=== PATIENT | male | born 1975 | race Caucasian/White ===

== ENCOUNTER → 2017-05-05 | Outpatient (REF) ==
--- NOTE | 2017-05-05 16:26 | Diagnostic Imaging Report ---
EXAMINATION: Left wrist at 4:03 PM. INDICATION: Wrist pain. TECHNIQUE: Three views of the left wrist were obtained. FINDINGS: There is no fracture, dislocation, or acute bony abnormality evident. 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 The soft tissues are unremarkable. IMPRESSION: There is no evidence for an acute bony abnormality. Dictated by: Dictated on workstation # [id number]
--- NOTE | 2017-05-05 16:28 | Diagnostic Imaging Report ---
EXAMINATION: Left hand at 4:03 PM. INDICATION: Hand pain. TECHNIQUE: Three views of the left hand were obtained. FINDINGS: There is no fracture, dislocation, or acute bony abnormality evident. There do not appear to be any significant arthritic changes involving the hand. 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 The soft tissues are unremarkable. IMPRESSION: There is no evidence for an acute bony abnormality. Dictated by: Dictated on workstation # [id number]
== END | disposition home or self-care (01) ==
LOC: OCC 15:33
PROVIDERS: ATTEND Nurse Practitioner Family
CPT/HCPCS: 73110; 73130